=== PATIENT | female | born 1965 | race Caucasian/White ===

== ENCOUNTER 2022-06-17 13:07 | Outpatient (REF) | payer BC, SELFPAY ==
[2022-06-17 14:55] LABS: MANUAL DIFF FLAG NO
[2022-06-17 15:37] LABS: Basophils Absolute Auto 0.1 X10*3/uL (0.0-0.2); Basophils Percent Auto 0.5 % (0-2); Eosinophils Absolute Auto 0.2 X10*3/uL (0.0-0.4); Eosinophils Percent Auto 1.9 % (0-4); Hematocrit 41.6 % (37.0-47.0); Hemoglobin 13.3 g/dl (12.0-16.0); Imm Gran Abs Auto 0.02 X10*3/uL (0.00-0.03); Imm Gran Pct Auto 0.2 % (0.0-0.4); Lymphocytes Absolute Auto 2.5 X10*3/uL (1.2-4.9); Mean Corpuscular Hemoglobin 29.7 pg (27.0-33.0); Mean Corpuscular Volume 92.9 fL (80.0-98.0); Mean Platelet Volume 10.5 fL (9.4-12.3); Monocytes Absolute Auto 0.8 X10*3/uL (0.1-1.2); Monocytes Percent Auto 6.6 % (2-11); Neutrophils Absolute Auto 8.3 x10*3/uL (2.0-8.3); Neutrophils Percent Auto 69.8 % (45-73); Platelet Count 298 X10*3/uL (160-400); Red Blood Count 4.48 X10*6/uL (4.20-5.50); Red Cell Distribution Width 13.5 % (11.0-16.0); White Blood Count 11.9 X10*3/uL (4.8-10.8)
[2022-06-17 15:52] LABS: Estimated Average Glucose 137 mg/dL; Hemoglobin A1c % 6.4 %
[2022-06-17 16:10] LABS: Alanine Aminotransferase 15 U/L (0-31); Albumin Level 4.3 g/dL (3.5-5.0); Alkaline Phosphatase 136 U/L (39-117); Anion Gap 17 (12-20); Aspartate Amino Transferase 15 U/L (5-31); Bilirubin Total 0.6 mg/dL (0.0-1.0); Blood Urea Nitrogen 18 mg/dL (9-16); C Reactive Protein 2.03 mg/dL (< or = 0.50); Calcium 9.3 mg/dL (8.4-10.2); Carbon Dioxide 30 mmol/L (22-29); Chloride 100 mmol/L (96-108); Estimated Glomerular Filt Rate > 60; Glucose Random 101 mg/dL (60-115); Sodium 143 mmol/L (135-145); Total Protein 7.3 g/dL (6.5-8.0)
[2022-06-17 16:22] LABS: Erythrocyte Sedimentation Rate 33 MM/HR (0-20)
[2022-06-20 08:46] LABS: HBS Num1 0.56 mIU/mL (0-7.99); HBc Num1 0.08 S/CO (0.00-0.79); HBsAGNum1 0.27 S/CO (0.00-0.99); Hepatitis A Antibody IgM 0.13 Index (0-0.79); Hepatitis B Core Antibody Nonreactive (Nonreactive); Hepatitis B Surface Antigen Negative (Negative); ~HepC Num1 0.12 S/CO (0.00-0.79); ~Hepatitis A Antibody IgM Nonreactive (Nonreactive); ~Hepatitis B Surface Antibody NONREACTIVE (Nonreactive); ~Hepatitis C Antibody Nonreactive (Nonreactive)
[2022-06-20 16:29] LABS: TS Negative Control Passed; TS Panel A 0; TS Panel B 0; TS Positive Control Passed; TSpotTB Negative (Negative)
[2022-06-20 22:58] LABS: PES - Abn Protein Band 1 0.3 g/dL (NONE DETECTED); Prot Elec - Albumin 3.6 g/dL (3.8-4.8); Prot Elec - Alpha1 0.4 g/dL (0.2-0.3); Prot Elec - Beta 1 0.4 g/dL (0.4-0.6); Prot Elec - Beta 2 0.4 g/dL (0.2-0.5); Prot Elec - Gamma 1.1 g/dL (0.8-1.7); Prot Elec - Total Protein 6.9 g/dL (6.1-8.1)
[2022-06-21 13:48] LABS: IgA 215 mg/dL (47-310); IgG 1293 mg/dL (600-1640); IgM 53 mg/dL (50-300)
== END 2022-06-17 13:08 | disposition home or self-care (01) ==
LOC: HO.LAB 13:07
PROVIDERS: PCP Internal Medicine; Visit Provider Student in an Organized Health Care Education/Training Program
DX: L40.50 Arthropathic psoriasis, unspecified (principal); Z13.1 Encounter for screening for diabetes mellitus; Z11.7 Encounter for testing for latent tuberculosis infection; Z11.59 Encounter for screening for other viral diseases; M25.541 Pain in joints of right hand; Z79.631 Long term (current) use of antimetabolite agent
CPT/HCPCS: 36415; 80053; 82784; 83036; 84165; 84550; 85025; 85652; 86140; 86334; 86481; 86704; 86706; 86709; 86803; 87340

== ENCOUNTER → 2022-08-09 15:32 | Outpatient (BNVA) | payer BC, SELFPAY | PROVIDERS: PCP Internal Medicine; Visit Provider Student in an Organized Health Care Education/Training Program | DX: L40.50 Arthropathic psoriasis, unspecified (principal); Z79.631 Long term (current) use of antimetabolite agent | CPT/HCPCS: 99212 ==

== ENCOUNTER 2022-12-26 10:29 | Outpatient (AMB) | payer BC, SELFPAY ==
[2022-12-26 10:32] VITALS: BP 122/68; PULSE 101; TEMP 36.4; O2SAT 93; BMI 44.3
--- NOTE | 2022-12-26 10:32 | A.OFFVIS_ITS ---
Intake Vital Signs 12/26/22 10:32 Height 5 ft 6 in Weight 274 lb 4.081 oz BMI 44.3 BP 122/68 Blood Pressure Location Rt brachial Position Sitting Pulse 101 H Pulse Source Pulse Oximeter Temp 97.5 F Temp Source Skin Pulse Oximetry (%) 93 Intake Visit Reasons: PsA Intake Note: Pt seen today for PsA follow up. Denies new or increased joint pain. 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 She has been on methotrexate 20 mg weekly since since July now. Denies any side effects related to it. States that over the last 2-3 weeks she has been having improved pain and stiffness in her right hand. Currently she is able to open and close jars. She states that she feels 10% better. Initial history: This is a 56-year-old female with complex past medical history including CVA with resultant hemiplegia who presents for evaluation of right ring finger pain and swelling. The condition started about a year ago with pain swelling and stiffness of her right ring finger. Patient uses the cane with her right hand and now has difficulty gripping objects. She cannot take NSAIDs as she is on Eliquis. She takes Tylenol as needed without significant relief. In 2018 she had swelling of her left ankle and foot. She continues to have the same swelling. Denies any pain in this area. She was diagnosed with psoriasis a few months ago and prescribed steroid creams. Psoriasis affects her shins and her years. She is unaware of any family history of autoimmune disease. There is no history suggestive of uveitis or IBD [facility] Medical History Psoriasis Patent foramen ovale Chronic motor or vocal tic disorder Hemiplegia Migraine Major depression GERD (gastroesophageal reflux disease) COPD (chronic obstructive pulmonary disease) Homonymous hemianopia Tobacco abuse Obesity Anxiety Hyperlipemia Hypertension SONIDO on CPAP CVA (cerebral vascular accident) Gait abnormality Surgical History Hx of hand surgery Hx of colonoscopy Family History Mother Brain cancer Father Myocardial infarct Social History Alcohol intake: current Alcohol intake frequency: holidays/special occasions only Patient Tobacco Use Status: Former Tobacco user Quit Date: 2014 Review of Systems Resp Reports no additional complaints Musc Reports arthralgias, Reports limited range of motion and Reports stiffness Physical Exam Vital Signs: Last Vital Signs Temp 97.5 F 12/26/22 10:32 Pulse 101 H 12/26/22 10:32 BP 122/68 12/26/22 10:32 Pulse Ox 93 12/26/22 10:32 BMI result Body Mass Index 44.3 Const General: cooperative, healthy appearing and comfortable Nutritional Appearance: obese morbidly obese Orientation/consciousness: patient oriented x3 Limitations: ambulation with cane HEENT Head: Yes normocephalic and Yes atraumatic Mouth: moist mucous membranes Resp Effort & Inspection: normal respiratory effort and able to speak in complete sentences Skin Other: No psoriasis patches on ears today. Neuro General: patient oriented x3 Extrem Other: No dactylitis today Right 3rd and 4th PIP tenderness Mild flexion deformity of right ring finger Nail pits both hands Results Reviewed Results Reviewed: X-RAY EXAM OF ANKLE, COMPLETE Exam Date: 07/03/2018 11:03 AM Ordering Diagnosis: Acute left ankle pain ? Left ankle, 3 views. Left foot, 3 views. There is marked soft tissue swelling in the distal leg and ankle as well as in the dorsum of the foot. There is no evidence of fractures, dislocations or destructive lesions. There is a large spur at insertion of the plantar facia and tiny calcification at the insertion of the Achilles tendon. There are minimal degenerative changes in the first metatarsophalangeal joint. ? CONCLUSIONS: Marked soft tissue swelling. Calcaneal spurs. Minimal degenerative changes in the first metatarsophalangeal joint. X-RAY KNEE 3 VIEW - W/O INJURY Exam Date: 06/29/2017 3:46 PM Ordering Diagnosis: Chronic pain of right knee ? Right knee, 3 views. ? History pain. There are mild degenerative changes in the patellofemoral compartment. There is no fractures, dislocations or destructive lesions. ? CONCLUSIONS: Mild degenerative changes in the patellofemoral compartment. X-RAY EXAM OF HAND, 3+ VIEWS Exam Date: 07/16/2021 10:30 AM Ordering Diagnosis: Finger pain, right ? EXAM: Right hand x-ray ? HISTORY: Right 5th finger swelling and pain over MCP joints. ? COMPARISON: None ? FINDINGS: ? 3 views were performed. ? Mild to moderate osteoarthritis at the 1st CMC joint with joint space narrowing, spurring, and subchondral sclerosis. Very mild degenerative changes at the distal radioulnar joint. Joint spaces otherwise appear maintained. No evidence of an acute fracture or malalignment. No destructive or erosive bony changes. ? IMPRESSION IMPRESSION: ? Osteoarthritic changes at the 1st CMC joint and distal radioulnar joint. Labs 04/2022 ESR 57 GORAN/RF/CCP negative Assessment & Plan Assessment & Plan (1) Psoriatic arthritis: Comment: dx 07/2022 MTX started 08/07 partially effective Code(s): L40.50 - Arthropathic psoriasis, unspecified Plan: This is a 56-year-old female with psoriatic arthritis returns for follow-up. On methotrexate 20 mg once weekly split dose. Swelling of joints is resolved today. Continues to have tender joints. Patient feeling symptomatically better. Previous labs showed high inflammatory markers. Repeat labs today. If patient continues to have significantly elevated inflammatory markers will likely add DMARDs. Discussed risks and benefits of Enbrel. Patient agreed to proceed if needed. 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 Will monitor patient for side effects with frequent lab work. Advised patient to take folic acid daily to prevent complications of methotrexate. Plan I spent 26 minutes reviewing patient's chart, evaluating patient, ordering diagnostic workup, counseling patient and documenting in the chart Orders: Orders Complete Blood Count Auto Diff Today L40.50 - Arthropathic psoriasis, unspecified Erythrocyte Sedimentation Rate Today L40.50 - Arthropathic psoriasis, unspecified Comprehensive Met. 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
== END 2022-12-26 11:01 | disposition home or self-care (01) ==
PROVIDERS: PCP Internal Medicine; Visit Provider Student in an Organized Health Care Education/Training Program
DX: L40.50 Arthropathic psoriasis, unspecified (principal); Z79.631 Long term (current) use of antimetabolite agent
CPT/HCPCS: 99214

== ENCOUNTER → 2022-12-26 10:29 | Outpatient (BNVA) | payer BC, SELFPAY | PROVIDERS: PCP Internal Medicine; Visit Provider Student in an Organized Health Care Education/Training Program ==

== ENCOUNTER 2022-12-26 11:09 | Outpatient (REF) | payer BC, SELFPAY ==
[2022-12-26 13:18] LABS: MANUAL DIFF FLAG NO
[2022-12-26 13:39] LABS: Basophils Percent Auto 0.2 % (0-2); Eosinophils Absolute Auto 0.3 X10*3/uL (0.0-0.4); Eosinophils Percent Auto 3.5 % (0-4); Hematocrit 39.3 % (37.0-47.0); Hemoglobin 12.7 g/dl (12.0-16.0); Imm Gran Abs Auto 0.02 X10*3/uL (0.00-0.03); Imm Gran Pct Auto 0.2 % (0.0-0.4); Lymphocytes Absolute Auto 1.5 X10*3/uL (1.2-4.9); Lymphocytes Percent Auto 17.2 % (20-40); Mean Corpuscular HGB Conc 32.3 g/dl (31.0-35.0); Mean Corpuscular Hemoglobin 32.2 pg (27.0-33.0); Mean Corpuscular Volume 99.5 fL (80.0-98.0); Mean Platelet Volume 10.4 fL (9.4-12.3); Monocytes Absolute Auto 0.4 X10*3/uL (0.1-1.2); Monocytes Percent Auto 4.3 % (2-11); Neutrophils Absolute Auto 6.3 x10*3/uL (2.0-8.3); Neutrophils Percent Auto 74.6 % (45-73); Platelet Count 307 X10*3/uL (160-400); Red Blood Count 3.95 X10*6/uL (4.20-5.50); White Blood Count 8.5 X10*3/uL (4.8-10.8)
[2022-12-26 13:46] LABS: Alanine Aminotransferase 12 U/L (0-31); Albumin Level 4.2 g/dL (3.5-5.0); Alkaline Phosphatase 141 U/L (39-117); Anion Gap 13 (12-20); Aspartate Amino Transferase 13 U/L (5-31); Bilirubin Total 0.5 mg/dL (0.0-1.0); Blood Urea Nitrogen 14 mg/dL (9-16); C Reactive Protein 2.09 mg/dL (< or = 0.50); Carbon Dioxide 29 mmol/L (22-29); Chloride 104 mmol/L (96-108); Estimated Glomerular Filt Rate > 60; Glucose Random 165 mg/dL (60-115); Potassium 3.9 mmol/L (3.3-5.1); Sodium 142 mmol/L (135-145); Total Protein 7.5 g/dL (6.5-8.0)
[2022-12-26 14:34] LABS: Erythrocyte Sedimentation Rate 44 MM/HR (0-20)
== END 2022-12-26 11:10 | disposition home or self-care (01) ==
LOC: HO.10HDL 11:09
PROVIDERS: Visit Provider Student in an Organized Health Care Education/Training Program
DX: L40.50 Arthropathic psoriasis, unspecified (principal)
CPT/HCPCS: 36415; 80053; 85025; 85652; 86140

== ENCOUNTER → 2023-02-03 08:35 | Outpatient (BNVA) | payer BC, SELFPAY | PROVIDERS: PCP Internal Medicine; Visit Provider Student in an Organized Health Care Education/Training Program ==

== ENCOUNTER 2023-03-28 10:05 | Outpatient (AMB) | payer SELFPAY ==
[2023-03-28 10:23] VITALS: BP 128/78; PULSE 102; RESP 17; TEMP 37.1; O2SAT 93; BMI 44.6
--- NOTE | 2023-03-28 10:23 | A.OFFVIS_ITS ---
Intake Vital Signs 03/28/23 10:23 Height 5 ft 6 in Weight 276 lb 7.355 oz BMI 44.6 BP 128/78 Blood Pressure Location Rt brachial Position Sitting Respiration 17 Pulse 102 H Pulse Source Pulse Oximeter Temp 98.7 F Temp Source Tympanic Pulse Oximetry (%) 93 Oxygen Delivery Method Room Air Intake Visit Reasons: PsA Head Of Cytogenetics Required: No Accompanied by: Self / Same As Patient Allergies No Known Allergies Allergy (Verified 03/28/23 10:26) Medication List - Last Reconciled 03/28/23 by Devi Franz RN apixaban 5 mg PO BID atorvastatin 80 mg PO DAILY buspirone 10 mg PO BID Enbrel SureClick (etanercept) 50 mg subcut QWEEK NS folic acid 1 mg PO DAILY furosemide 20 mg PO DAILY gabapentin 300 mg PO BEDTIME losartan-hydrochlorothiazide 50-12.5 mg 1 tab PO DAILY methotrexate sodium 20 mg (8 x 2.5 mg) PO QWEEK HPI HPI Comments History of Present Illness Details 57-year-old female with psoriatic arthri tis returns for follow-up. Started Enbrel after last visit. She is also on methotrexate 20 mg weekly. She states that she has better strength in her hands now. Able to open and close jars. States however that she some pain, stiffness and deformity of the right little finger. Denies any side effects related to methotrexate or Enbrel. Initial history: This is a 56-year-old female with complex past medical history including CVA with resultant hemiplegia who presents for evaluation of right ring finger pain and swelling. The condition started about a year ago with pain swelling and stiffness of her right ring finger. Patient uses the cane with her right hand and now has difficulty gripping objects. She cannot take NSAIDs as she is on Eliquis. She takes Tylenol as needed without significant relief. In 2019 she had swelling of her left ankle and foot. She continues to have the same swelling. Denies any pain in this area. She was diagnosed with psoriasis a few months ago and prescribed steroid creams. Psoriasis affects her shins and her years. She is unaware of any family history of autoimmune disease. There is no history suggestive of uveitis or IBD [facility] Medical History Psoriasis Patent foramen ovale Chronic motor or vocal tic disorder Hemiplegia Migraine Major depression GERD (gastroesophageal reflux disease) COPD (chronic obstructive pulmonary disease) Homonymous hemianopia Tobacco abuse Obesity Anxiety Hyperlipemia Hypertension SONIDO on CPAP CVA (cerebral vascular accident) Gait abnormality Surgical History Hx of hand surgery Hx of colonoscopy Family History Mother Brain cancer Father Myocardial infarct Social History Alcohol intake: current Alcohol intake frequency: holidays/special occasions only Patient Tobacco Use Status: Former Tobacco user Quit Date: 2014 Review of Systems Musc Reports deformity, Reports limited range of motion and Reports stiffness Physical Exam Vital Signs: Last Vital Signs Temp 98.7 F 03/28/23 10:23 Pulse 102 H 03/28/23 10:23 Resp 17 03/28/23 10:23 BP 128/78 03/28/23 10:23 Pulse Ox 93 03/28/23 10:23 Oxygen Delivery Method Room Air 03/28/23 10:23 BMI result Body Mass Index 44.6 Const General: cooperative, healthy appearing and comfortable Nutritional Appearance: obese morbidly obese Orientation/consciousness: patient oriented x3 Limitations: ambulation with cane HEENT Head: Yes normocephalic and Yes atraumatic Mouth: moist mucous membranes Resp Effort & Inspection: normal respiratory effort and able to speak in complete sentences Skin Other: No psoriasis patches on ears today. Neuro General: patient oriented x3 Extrem Other: No swollen or tender joints Deformity of right little finger Nail pits both hands Results Reviewed Results Reviewed: X-RAY EXAM OF ANKLE, COMPLETE B Exam Date: 07/03/2018 11:03 AM Ordering Diagnosis: Acute left ankle pain ? Left ankle, 3 views. Left foot, 3 views. There is marked soft tissue swelling in the distal leg and ankle as well as in the dorsum of the foot. There is no evidence of fractures, dislocations or destructive lesions. There is a large spur at insertion of the plantar facia and tiny calcification at the insertion of the Achilles tendon. There are minimal degenerative changes in the first metatarsophalangeal joint. ? CONCLUSIONS: Marked soft tissue swelling. Calcaneal spurs. Minimal degenerative changes in the first metatarsophalangeal joint. X-RAY KNEE 3 VIEW - W/O INJURY Exam Date: 06/29/2017 3:46 PM Ordering Diagnosis: Chronic pain of right knee ? Right knee, 3 views. ? History pain. There are mild degenerative changes in the patellofemoral compartment. There is no fractures, dislocations or destructive lesions. ? CONCLUSIONS: Mild degenerative changes in the patellofemoral compartment. X-RAY EXAM OF HAND, 3+ VIEWS Exam Date: 07/16/2021 10:30 AM Ordering Diagnosis: Finger pain, right ? EXAM: Right hand x-ray ? HISTORY: Right 5th finger swelling and pain over MCP joints. ? COMPARISON: None ? FINDINGS: ? 3 views were performed. ? Mild to moderate osteoarthritis at the 1st CMC joint with joint space narrowing, spurring, and subchondral sclerosis. Very mild degenerative changes at the distal radioulnar joint. Joint spaces otherwise appear maintained. No evidence of an acute fracture or malalignment. No destructive or erosive bony changes. ? IMPRESSION IMPRESSION: ? Osteoarthritic changes at the 1st CMC joint and distal radioulnar joint. Labs 04/2022 ESR 57 GORAN/RF/CCP negative Assessment & Plan Assessment & Plan (1) Psoriatic arthritis: Comment: dx 07/2022 MTX started 08/07 partially effective Enbrel added 01/07 effective Code(s): L40.50 - Arthropathic psoriasis, unspecified Plan: This is a 57-year-old female with psoriatic arthritis returns for follow-up. On methotrexate 20 mg weekly and Enbrel 50 mg daily. Patient doing much better overall. Continue methotrexate 20 mg weekly split dose, folic acid 1 mg daily and Enbrel 50 mg weekly Will check and x-rays to evaluate her right little finger deformity Infectious screening hepatitis panel and T spot -ve 2022 Labs before next visit in 3 months (2) [facility] methotrexate user: Code(s): Z79.631 - [facility] (current) use of antimetabolite agent Plan: Monitor safety labs Plan I spent 26 minutes reviewing patient's chart, evaluating patient, ordering diagnostic workup, counseling patient and documenting in the chart Orders: Orders XR hand wrist LT Today Z79.631 - [facility] (current) use of antimetabolite agent Complete Blood Count Auto Diff 3 Months Z79.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
== END 2023-03-28 10:47 | disposition home or self-care (01) ==
PROVIDERS: PCP Internal Medicine; Visit Provider Student in an Organized Health Care Education/Training Program
DX: L40.50 Arthropathic psoriasis, unspecified (principal); Z79.631 Long term (current) use of antimetabolite agent
CPT/HCPCS: 99214

== ENCOUNTER → 2023-03-28 10:05 | Outpatient (BNVA) | payer BC, SELFPAY | PROVIDERS: PCP Internal Medicine; Visit Provider Student in an Organized Health Care Education/Training Program ==

== ENCOUNTER → 2023-08-25 19:30 | Outpatient (REF) | payer SELFPAY | LOC: HO.SL 19:30 | PROVIDERS: Visit Provider Family Medicine | DX: Z13.89 Encounter for screening for other disorder (principal) ==